=== PATIENT | male | born 1965 | race African-American/Black ===

== ENCOUNTER 2022-08-18 18:34 | Outpatient (CLI) | payer BC, SELFPAY ==
[2022-08-18 22:01] LABS: Chloride* 107 mmol/L (96-114); Potassium* 4.2 mmol/L (3.6-5.1); Sodium* 140 mmol/L (135-149)
[2022-08-18 22:04] LABS: Carbon Dioxide* 24 mmol/L (20-32); Creatinine* 1.2 mg/dL (0.5-1.5); Estimated Glomerular Filt Rate 72 ml/min
[2022-08-18 22:05] LABS: Blood Urea Nitrogen* 19 mg/dL (7-30); Glucose* 108 mg/dL (60-115)
[2022-08-18 22:23] LABS: PSA Screen* 0.43 ng/mL (0.10-4.00)
== END 2022-08-18 18:35 | disposition home or self-care (01) ==
PROVIDERS: PCP Emergency Medicine; Visit Provider Emergency Medicine
DX: I10 Essential (primary) hypertension (principal); R79.89 Other specified abnormal findings of blood chemistry; R73.03 Prediabetes; Z12.5 Encounter for screening for malignant neoplasm of prostate
CPT/HCPCS: 80048; 84153

== ENCOUNTER 2023-02-19 15:22 | Outpatient (CLI) | payer BC, SELFPAY | END 2023-02-19 15:23 | disposition home or self-care (01) | LOC: NFLDREF 02-20 11:56 | PROVIDERS: PCP Emergency Medicine; Referring Provider Emergency Medicine; Visit Provider Emergency Medicine | DX: Z00.00 Encounter for general adult medical examination without abnormal findings (principal); R73.03 Prediabetes; E78.5 Hyperlipidemia, unspecified; I10 Essential (primary) hypertension; E66.9 Obesity, unspecified; E11.69 Type 2 diabetes mellitus with other specified complication | CPT/HCPCS: 80061; 82043; 82570 ==

== ENCOUNTER 2023-08-09 08:09 | Outpatient (CLI) | payer BC, SELFPAY | END 2023-08-09 08:10 | disposition home or self-care (01) | LOC: NFLDREF 08-11 01:52 | PROVIDERS: PCP Emergency Medicine; Referring Provider Emergency Medicine; Visit Provider Emergency Medicine | DX: E11.69 Type 2 diabetes mellitus with other specified complication (principal); E66.9 Obesity, unspecified; R79.89 Other specified abnormal findings of blood chemistry; E78.5 Hyperlipidemia, unspecified; I10 Essential (primary) hypertension | CPT/HCPCS: 80061; 84153; 84270; 84402; 84403 ==

== ENCOUNTER 2024-02-01 14:36 | Outpatient (CLI) | payer BC, SELFPAY | END 2024-02-01 14:37 | disposition home or self-care (01) | PROVIDERS: PCP Emergency Medicine; Visit Provider Emergency Medicine | DX: Z11.3 Encounter for screening for infections with a predominantly sexual mode of transmission (principal); E29.1 Testicular hypofunction; I10 Essential (primary) hypertension | CPT/HCPCS: 80053; 84270; 84402; 84403; 86592; 86703; 86706; 86803; 87340; 87491; 87591 ==

== ENCOUNTER 2024-03-31 08:22 | Outpatient (CLI) | payer BC, SELFPAY | END 2024-03-31 08:23 | disposition home or self-care (01) | LOC: NFLDREF 04-03 07:06 | PROVIDERS: PCP Emergency Medicine; Referring Provider Emergency Medicine; Visit Provider Family Medicine | DX: R79.89 Other specified abnormal findings of blood chemistry (principal) | CPT/HCPCS: 84270; 84402; 84403 ==

== ENCOUNTER 2024-06-13 15:09 | Outpatient (CLI) | payer BC, SELFPAY | END 2024-06-13 15:10 | disposition home or self-care (01) | LOC: LKVREF 15:10 | PROVIDERS: PCP Emergency Medicine; Visit Provider Emergency Medicine | DX: M10.9 Gout, unspecified (principal); E11.69 Type 2 diabetes mellitus with other specified complication; E78.5 Hyperlipidemia, unspecified; I10 Essential (primary) hypertension; R79.89 Other specified abnormal findings of blood chemistry; Z12.5 Encounter for screening for malignant neoplasm of prostate | CPT/HCPCS: 80061; 82043; 82570; 83036; 84550; G0103 ==

== ENCOUNTER 2024-07-25 07:11 | Outpatient (CLI) | payer BC, SELFPAY ==
--- NOTE | 2024-07-25 09:05 | W.ANESCHARGE ---
Anesthesia Charges Start Date/Time Anesthesia Start Date: 07/25/24 Anesthesia Start Time: 08:26 Stop Date/Time Anesthesia Stop Date: 07/25/24 Anesthesia Stop Time: 09:03
== END 2024-07-25 07:12 | disposition home or self-care (01) ==
PROVIDERS: PCP Emergency Medicine; Visit Provider Surgery
DX: Z86.010 Personal history of colon polyps (principal); D12.3 Benign neoplasm of transverse colon; K57.30 Diverticulosis of large intestine without perforation or abscess without bleeding
CPT/HCPCS: 00811; 45385; 88305; J2704

== ENCOUNTER 2025-01-23 15:37 | Outpatient (CLI) | payer BC, SELFPAY | END 2025-01-23 15:38 | disposition home or self-care (01) | PROVIDERS: PCP Emergency Medicine; Visit Provider Emergency Medicine | DX: E11.69 Type 2 diabetes mellitus with other specified complication (principal); E66.9 Obesity, unspecified; Z68.43 Body mass index [BMI] 50.0-59.9, adult; Z79.84 Long term (current) use of oral hypoglycemic drugs | CPT/HCPCS: 80053 ==

== ENCOUNTER 2025-05-15 15:09 | Outpatient (CLI) | payer BC, SELFPAY | END 2025-05-15 15:10 | disposition home or self-care (01) | PROVIDERS: PCP Emergency Medicine; Visit Provider Emergency Medicine | DX: M10.9 Gout, unspecified (principal); E29.1 Testicular hypofunction; Z12.5 Encounter for screening for malignant neoplasm of prostate | CPT/HCPCS: 84270; 84402; 84403; 84550; G0103 ==

== ENCOUNTER 2025-05-25 13:15 | Outpatient (CLI) | payer BC, SELFPAY | END 2025-05-25 13:16 | disposition home or self-care (01) | LOC: NFLDREF 05-29 22:47 | PROVIDERS: PCP Emergency Medicine; Referring Provider Emergency Medicine; Visit Provider Emergency Medicine | DX: R71.8 Other abnormality of red blood cells (principal); Z13.88 Encounter for screening for disorder due to exposure to contaminants | CPT/HCPCS: 83655; 84165 ==

== ENCOUNTER 2025-06-15 10:31 | Outpatient (CLI) | payer BC, SELFPAY | END 2025-06-15 10:32 | disposition home or self-care (01) | LOC: NFLDREF 06-17 05:59 | PROVIDERS: PCP Emergency Medicine; Referring Provider Emergency Medicine; Visit Provider Emergency Medicine | DX: R71.8 Other abnormality of red blood cells (principal) | CPT/HCPCS: 80061; 83020; 83021; 85660 ==

== ENCOUNTER 2025-06-22 09:33 | Outpatient (CLI) | payer BC, SELFPAY | END 2025-06-22 09:34 | disposition home or self-care (01) | LOC: NFLDREF 07-05 03:19 | PROVIDERS: PCP Emergency Medicine; Referring Provider Emergency Medicine; Visit Provider Emergency Medicine | DX: R71.8 Other abnormality of red blood cells (principal) | CPT/HCPCS: 81269 ==

== ENCOUNTER 2025-06-26 16:39 | Outpatient (CLI) | payer BC, SELFPAY ==
[2025-06-26 23:06] LABS: Chlamydia DNA Amplified* NOT DETECTED (No Detected); GC DNA Amplified* NOT DETECTED (No Detected)
== END 2025-06-26 16:40 | disposition home or self-care (01) ==
PROVIDERS: PCP Emergency Medicine; Visit Provider Emergency Medicine
DX: Z11.3 Encounter for screening for infections with a predominantly sexual mode of transmission (principal); Z11.4 Encounter for screening for human immunodeficiency virus [HIV]; Z11.59 Encounter for screening for other viral diseases
CPT/HCPCS: 86592; 86703; 86803; 87340; 87491; 87591

== ENCOUNTER 2025-09-25 12:46 | Outpatient (CLI) | payer BC, SELFPAY | END 2025-09-25 12:47 | disposition home or self-care (01) | PROVIDERS: Visit Provider Family Medicine | DX: E11.69 Type 2 diabetes mellitus with other specified complication (principal); E78.2 Mixed hyperlipidemia; I10 Essential (primary) hypertension; E66.9 Obesity, unspecified; Z68.43 Body mass index [BMI] 50.0-59.9, adult | CPT/HCPCS: 80053; 80061; 82043; 82570; 82607; 86803; G0103 ==

== ENCOUNTER 2025-10-10 09:47 | Outpatient (CLI) | payer BC, SELFPAY | END 2025-10-10 09:48 | disposition home or self-care (01) | LOC: RAD 09:48 | PROVIDERS: PCP Family Medicine; Visit Provider Family Medicine | DX: I11.9 Hypertensive heart disease without heart failure (principal); R60.0 Localized edema | CPT/HCPCS: 93306 ==